=== PATIENT | female | born 1955 | race African-American/Black ===

== ENCOUNTER 2016-07-21 19:21 | Emergency (ER) | payer OTHER ==
[~2016-07-21] VITALS: Ht 167.6 cm; Wt 74.8 kg
[~2016-07-21 19:21] MED LIST: ASPIRIN EC81 M1 PO; ATIVAN1 M1 PO; AUGMENTIN 875 M1 TAB PO; CYCLOBENZAPRINE10 M1 PO; FIBER GUMMIES2 GM PO; FOSAMAX70 M1 PO; GERITOL COMPLE1 EACH PO; IBU600 MG PO; IBUPROFEN800 M1 PO; LOVASTATIN20 M1 PO; TAMIFLU 75MG75 MG PO; TESSALON PERLE100 MG PO; ULTRAM50 M1 PO; ZOFRAN ODT4 MG SL
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
[2016-07-21] MEDS ORDERED: SYNTHROID50 MCG PO (20:16)
[2016-07-21] MEDS ORDERED: NORVASC5 M1 PO (20:16)
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
[2016-07-21 23:27] VITALS: BP 144/70
== END 2016-07-21 23:27 ==
LOC: ERH 19:21
DX: S93.401A Sprain of unspecified ligament of right ankle, initial encounter (principal); T14.8 Other injury of unspecified body region; V43.03XA Car driver injured in collision with pick-up truck in nontraffic accident, initial encounter; Y92.410 Unspecified street and highway as the place of occurrence of the external cause
CPT/HCPCS: 72100; 72170; 73502-LT; 73502-RT; 73562-LT; 73610-RT